=== PATIENT | female | born 1955 | race African-American/Black ===

== ENCOUNTER 2024-05-24 11:58 | Emergency (ER) | payer OTHER, MEDICAID ==
[~2024-05-24] VITALS: Ht 160 cm; Wt 51.1 kg
[2024-05-24] MEDS: TETRACAINE HCL 0.5% OPTH(EYE) SOLN 4ML RIGHTEYE ONE (13:27)
[2024-05-24] MEDS: FLUORESCEIN SOD OPTH TEST STRIP LEFTEYE ONE (13:27)
[2024-05-24] MEDS ORDERED: KETO0.5S31 LEFTEYE (13:47)
[2024-05-24] MEDS ORDERED: ERY05OO OP (13:47)
--- NOTE | 2024-05-24 13:47 | ED.PDOC ---
Eye-HPI HPI Comments This is a pleasant 68-year-old female with no pertinent MHx that presents with a chief complaint of left eye discomfort x1 day. No trauma no injury. Symptoms started this morning after waking up Possible cause is unknown however patient recalls cutting plastic outdoors before going to bed and believes a small piece of plastic got into her eye Symptoms are currently described as a gritty irritating sensation Has not taken medications for the symptoms listed above Denies vision changes/floaters Denies eye discharge Denies hearing changes, nausea, vomiting Denies eye pain with movement, eye pain in general, difficulty keeping eye open, sensitivity to light Last optometry exam unknown Chief Complaint: Eye Problem Time Seen by MD: 12:28 Reviewed Notes: Nurses Notes, Medications, Allergies Allergies: Coded Allergies: NO KNOWN ALLERGIES (Unverified , 05/24/24) Home Meds Active Scripts Ketorolac Tromethamine (Ophth) (Ketorolac Tromethamine) 0.5 % Isabell, 1 DROP LEFTEYE QID for 2 Days, #5 ML 0 Refills Prov:USHA MARQUEZ [employer]TE[employer] 05/24/24 Erythromycin (Erythromycin) 5 Mg/Gm Oin, 1 APPLIC OP TID for 7 Days, #5 GRAMS 0 Refills Prov:USHA MARQUEZ [employer]TENA[employer] 05/24/24 Information Source: Patient Mode of Arrival: Ambulatory All Other Systems: Reviewed and Negative (Per HPI) Physical Exam General Appearance: No Apparent Distress, Normal HEENT: Normal ENT Inspection, PERRL/EOMI (The left eye: No orbital erythema swelling edema foreign bodies were tenderness to palpation. No foreign bodies appreciated during upper or lower lid eversion. Extraocular movements intact and pupils equal round reactive to light and accommodation), Pharynx Normal, TMs Normal Neck: Full Range of Motion, Non-Tender, Normal, Normal Inspection Respiratory: Chest Non-Tender, Lungs Clear, No Accessory Muscle Use, No Respiratory Distress, Normal Breath Sounds Cardiovascular: No Murmur, No Gallop, Regular Rate/Rhythm Breast Exam: Deferred Gastrointestinal: No Organomegaly, Non Tender, No Pulsatile Mass, Normal Bowel Sounds, Soft Genitalia: Deferred Pelvic: Deferred Rectal: Deferred Extremities: No calf tenderness, Normal capillary refill, Normal inspection, Normal range of motion, Non-tender, No pedal edema Musculoskeletal : Apperance: Normal Neurologic: Alert, No Motor Deficits, Normal Affect, Normal Mood, No Sensory Deficits Cerebellar Function: Normal Reflexes: Normal Skin: Dry, Normal Color, Warm Lymphatic: No Adenopathy Was a procedure done? Was a procedure done?: No EENT DIFF Eye: Corneal Abrasion, Other X-Ray, Labs, Meds, VS Vital Signs Date Time Temp Pulse Resp B/P (MAP) Pulse Ox O2 Delivery O2 Flow Rate FiO2 05/24/24 13:50 105 15 100 Room Air 05/24/24 13:50 97.5 105 15 123/87 (99) 100 97.5 05/24/24 12:11 97.5 105 15 123/87 (99) 100 97.5 X-Ray, Labs, Meds, VS Comment History and findings consistent with corneal abrasion Applied 1 drop of tetracaine and patient reported instant relief with topical anesthesia Applied fluorescein strip Using Suero lamp corneal defect detected indicating corneal abrasion IOP 13 Antibiotic management: Patient discharged and advised to follow-up in 48 hours with PCP or optometry Discussed with patient's approximate healing time for corneal abrasions is somewhere between 48 to 72 hours On reevaluation, patient had symptomatic improvement. Patient is stable for discharge at this time. External notes reviewed. Test results and diagnostic imaging interpreted. All diagnostic findings, discharge care, education and instructions provided Follow-up with PCP in 2 to 3 days Patient verbalized understanding and agreed to treatment plan Vital signs stable, afebrile, no acute distress noted Patient ambulatory with strong steady gait Advised to return precautions for any new or worsening symptoms, return to ER immediately for re-evaluation Patient is aware that the purpose of this visit was for an acute medical emergency requiring emergent stabilization. Chronic conditions, including malignancies have not been ruled out. Patient is instructed to follow up with PCP as directed and discharge instructions for continued care and workup. If unable to arrange follow-up, patient is to return to the emergency department for reassessment. Patient (parent or legal guardian if applicable) was given verbal and written discharge instructions and acknowledges understanding. Time of 1ST Reevaluation: 13:30 Reevaluation 1ST: Improved Patient Education/Counseling: Diagnosis, Treatment Family Education/Counseling: Diagnosis, Treatment Departure 1 Departure Time of Disposition: 13:44 Impression: Primary Impression: Corneal abrasion Qualified Codes: S05.02XA - Injury of conjunctiva and corneal abrasion without foreign body, left eye, initial encounter Disposition: 01 HOME / SELF CARE / HOMELESS Condition: Stable e-Prescriptions Ketorolac Tromethamine (Ophth) (Ketorolac Tromethamine) 0.5 % Isabell 1 DROP LEFTEYE QID for 2 Days, #5 ML 0 Refills Prov: USHA MARQUEZ [employer]TE[employer] 05/24/24 Erythromycin (Erythromycin) 5 Mg/Gm Oin 1 APPLIC OP TID for 7 Days, #5 GRAMS 0 Refills Prov: USHA MARQUEZ [employer]TE[employer] 05/24/24 Critical Care Note Critical Care Time?: No Stability Stability form required: No Heart Score Heart Score: Heart Score Response (Comments) Value History N/A 0 EKG N/A 0 Age N/A 0 Risk Factors N/A 0 Troponin N/A 0 Total 0 USHA MARQUEZ NP May 24, 2024 13:47
[2024-05-24 13:50] VITALS: BP 123/87; PULSE 105; RESP 15; TEMP 97.5; O2SAT 100
== END 2024-05-24 13:52 | disposition home or self-care (01) ==
LOC: ER 12:07
DX: S05.02XA Injury of conjunctiva and corneal abrasion without foreign body, left eye, initial encounter (principal); Z79.899 Other long term (current) drug therapy; X58.XXXA Exposure to other specified factors, initial encounter; Y93.89 Activity, other specified; Y92.89 Other specified places as the place of occurrence of the external cause; Y99.8 Other external cause status